=== PATIENT | female | born 1940 | race Caucasian/White ===

== ENCOUNTER 2022-12-16 08:44 | Day surgery (SDC) | payer OTHER, MEDICAID ==
[2022-12-15 09:32] VITALS: BMI 18.3
[2022-12-16] MEDS ORDERED: Lidocaine 1% (PF) 30 ML VIAL ONE (10:17)
[2022-12-16] MEDS ORDERED: Ketamine 50 MG/ML (10ML VIAL) ONE (10:40)
[2022-12-16] MEDS ORDERED: Iopamidol 370 76% 100 ML VIAL ONE (10:46)
[2022-12-16] MEDS ORDERED: PROPOFOL 200 MG/20 ML VIAL ONE (10:49)
[2022-12-16] MEDS ORDERED: Heparin 10,000 UNITS/ 10 ML VIAL ONE (11:46)
== END 2022-12-16 15:10 | disposition home or self-care (01) ==
LOC: SDC 08:44
PROVIDERS: ATTEND Internal Medicine Cardiovascular Disease
DX: I48.3 Typical atrial flutter (principal); I48.0 Paroxysmal atrial fibrillation; I47.1 Supraventricular tachycardia; I25.10 Atherosclerotic heart disease of native coronary artery without angina pectoris; I11.0 Hypertensive heart disease with heart failure; I50.32 Chronic diastolic (congestive) heart failure; E78.2 Mixed hyperlipidemia; Z95.0 Presence of cardiac pacemaker; Z92.89 Personal history of other medical treatment; Z79.01 Long term (current) use of anticoagulants; Z79.899 Other long term (current) drug therapy; Z87.891 Personal history of nicotine dependence
CPT/HCPCS: 93005; 93621; 93653; C1731; C1732; C1760; C1894; J1644; J2001; J2704; Q9967

== ENCOUNTER 2023-07-07 08:39 | Inpatient (IN) | payer MEDICAID, OTHER ==
[2023-07-07 09:04] LABS: #Basophils 0.1 thou/uL (0.0-0.2); #Eosinphils 0.1 thou/uL (0.0-0.7); #Monocytes 0.8 thou/uL (0.11-0.59); #Neutrophils 9.4 thou/uL (1.40-6.50); %Basophils 0.4 % (0.0-1.0); %Eosinophils 1.2 % (0.0-10.0); %Lymphocytes 12.1 % (21.0-51.0); %Monocytes 6.3 % (0.0-10.0); %Neutrophils 78.9 % (42.0-75.0); Hematocrit 40.6 % (36.0-47.0); Hemoglobin 12.2 g/dL (12.0-16.0); Mean Corpuscular Hemoglobin 24.8 pg (27.0-31.0); Mean Corpuscular Volume 82.7 fl (78.0-98.0); Mean Platelet Volume 10.7 fL (7.4-10.4); Platelet Count 432 10x3/uL (130-400); RBC Distribution Width 17.6 % (11.5-14.5); Red Blood Cell (RBC) Count 4.91 mill/uL (4.20-5.40); White Blood Cell (WBC) Count 11.9 10x3/uL (4.8-10.8)
[2023-07-07 09:18] LABS: ALT (SGPT) 17 U/L (8-55); AST (SGOT) 24 U/L (5-34); Albumin 3.7 g/dL (3.4-4.8); Alkaline Phosphatase 96 U/L (40-110); Anion Gap 14 mmol/L (10-20); BUN (Urea Nitrogen) 16 mg/dL (9.8-20.1); Bilirubin, Total 0.5 mg/dL (0.2-1.2); Calc. Creatinine Clearance 0 mL/min (70-130); Calcium 8.8 mg/dL (7.8-10.44); Carbon Dioxide 27 mmol/L (23-31); Chloride 105 mmol/L (98-107); Estimated GFR 54; Globulin 2.8 g/dL (2.4-3.5); Glucose 109 mg/dL (83-110); Protein, Total 6.5 g/dL (5.8-8.1); Sodium 143 mmol/L (136-145)
[2023-07-07 09:20] LABS: INR-International Normal Ratio 1.1; Prothrombin Time 13.8 sec (12.0-14.7)
[2023-07-07 09:21] LABS: PTT 27.3 sec (22.9-36.1)
[2023-07-07 09:23] LABS: Troponin I 0.079 ng/mL (< 0.028)
[2023-07-07] MEDS ORDERED: Aspirin Chewable 81 MG TAB ONE (10:39)
[2023-07-07] MEDS ORDERED: hydrALAZINE 20 MG/ML VIAL SLOW IVP PRN (11:27)
[2023-07-07 13:21] VITALS: BMI 19.8
[2023-07-07] MEDS ORDERED: Potassium Chloride 20 MEQ (100 mL) BAG ONE ×2 (13:36→15:37)
[2023-07-07] MEDS: Potassium Chloride 20 MEQ in Premix 1 BAG IVPB SCH (13:56)
[2023-07-07] MEDS: Sodium Chloride 0.9% 1,000 ML IV SCH (13:56)
[2023-07-07] MEDS ORDERED: Iopamidol-370 76% 500 ML MDV (1 ML CHARGE) ONE (14:22)
[2023-07-07] MEDS ORDERED: Pravastatin Sodium 40 MG TAB PO SCH (21:00)
[2023-07-07] MEDS: Apixaban 2.5 MG TAB PO SCH (22:34)
[2023-07-08] MEDS: Lidocaine 4% Patch TD SCH ×2 (02:08→20:45)
[2023-07-08 05:30] LABS: Cardiac Risk 2.7 (Less than 4.5)
[2023-07-08] MEDS: Ondansetron PF 4 MG/2 ML Vial IVP PRN (09:19)
[2023-07-08] MEDS: Morphine 2 MG/ML VIAL SLOW IVP PRN (09:19)
[2023-07-08 09:29] LABS: #Basophils 0.1 thou/uL (0.0-0.2); #Eosinphils 0.1 thou/uL (0.0-0.7); #Monocytes 0.8 thou/uL (0.11-0.59); #Neutrophils 13.4 thou/uL (1.40-6.50); %Basophils 0.3 % (0.0-1.0); %Eosinophils 0.3 % (0.0-10.0); %Lymphocytes 7.2 % (21.0-51.0); %Neutrophils 86.5 % (42.0-75.0); Hematocrit 39.5 % (36.0-47.0); Hemoglobin 11.7 g/dL (12.0-16.0); Mean Corpuscular HGB CONC 29.6 g/dL (32.0-36.0); Mean Corpuscular Hemoglobin 24.7 pg (27.0-31.0); Mean Corpuscular Volume 83.5 fl (78.0-98.0); Mean Platelet Volume 10.2 fL (7.4-10.4); Platelet Count 413 10x3/uL (130-400); RBC Distribution Width 17.6 % (11.5-14.5); Red Blood Cell (RBC) Count 4.73 mill/uL (4.20-5.40); White Blood Cell (WBC) Count 15.5 10x3/uL (4.8-10.8)
[2023-07-08 09:56] LABS: Anion Gap 15 mmol/L (10-20); BUN (Urea Nitrogen) 14 mg/dL (9.8-20.1); Calc. Creatinine Clearance 44 mL/min (70-130); Calcium 8.3 mg/dL (7.8-10.44); Carbon Dioxide 23 mmol/L (23-31); Chloride 109 mmol/L (98-107); Estimated GFR 74; Glucose 62 mg/dL (83-110); Magnesium 1.7 mg/dL (1.6-2.6); Potassium 3.2 mmol/L (3.5-5.1); Sodium 144 mmol/L (136-145)
[2023-07-08] MEDS: Aspirin 300 MG Suppository PR SCH (11:00)
[2023-07-08] MEDS: Potassium Chloride 20 MEQ in Premix 1 BAG IVPB SCH (13:09)
[2023-07-08] MEDS: Transdermal Patch Removal TOP SCH (14:14)
[2023-07-08] MEDS: Amiodarone 200 MG TAB PO SCH (16:41)
[2023-07-08] MEDS: Digoxin 0.125 MG TAB PO SCH (16:41)
[2023-07-08] MEDS: dilTIAZem CD 240 MG CAP PO SCH (16:41)
[2023-07-08 16:43] LABS: Bacteria/HPF 2+ HPF (None Seen); Bilirubin Negative (Negative); Blood, Urine 1+ (Negative); CAUTI Indications for Culture Alt mental st,lethar; Clarity Extra Turbid (Clear); Glucose, Urine (Dipstick) Normal (Negative); Ketone, Urine 80 mg/dL (Negative); Leukocyte 500 Leu/uL (Negative); Nitrite 2+ (Negative); Protein, Urine (Dipstick) 100 mg/dL (Neg-Trace); RBC/HPF 21-50 HPF (0-3); Specific Gravity, Urine 1.025 (1.002-1.036); Squamous Epithelial 0-3 HPF (0-3); Urobilinogen Normal mg/dL (Less than 2); WBC/HPF Greater than 50 HPF (0-3); pH, Urine 7.5 (5.0-9.0)
[2023-07-08 16:49] LABS: Urine Culture Reflex Yes Yes
[2023-07-09 06:10] LABS: #Eosinphils 0.1 thou/uL (0.0-0.7); #Monocytes 0.8 thou/uL (0.11-0.59); #Neutrophils 10.2 thou/uL (1.40-6.50); %Basophils 0.3 % (0.0-1.0); %Lymphocytes 10.1 % (21.0-51.0); %Monocytes 6.3 % (0.0-10.0); %Neutrophils 81.8 % (42.0-75.0); Hematocrit 35.9 % (36.0-47.0); Hemoglobin 10.8 g/dL (12.0-16.0); Mean Corpuscular HGB CONC 30.1 g/dL (32.0-36.0); Mean Corpuscular Volume 83.1 fl (78.0-98.0); Mean Platelet Volume 10.6 fL (7.4-10.4); Platelet Count 340 10x3/uL (130-400); RBC Distribution Width 17.6 % (11.5-14.5); Red Blood Cell (RBC) Count 4.32 mill/uL (4.20-5.40); White Blood Cell (WBC) Count 12.5 10x3/uL (4.8-10.8)
[2023-07-09 06:39] LABS: Anion Gap 12 mmol/L (10-20); BUN (Urea Nitrogen) 11 mg/dL (9.8-20.1); Calc. Creatinine Clearance 46 mL/min (70-130); Carbon Dioxide 23 mmol/L (23-31); Chloride 111 mmol/L (98-107); Estimated GFR 78; Glucose 73 mg/dL (83-110); Potassium 3.4 mmol/L (3.5-5.1); Sodium 143 mmol/L (136-145)
[2023-07-09] MEDS: predniSONE 20 MG TAB PO SCH (08:31)
[2023-07-09] MEDS: Transdermal Patch Removal TOP SCH (10:45)
[2023-07-09] MEDS: Potassium Bicarbonate/Cit Ac 20 MEQ TAB PO SCH (11:05)
[2023-07-09] MEDS: Potassium Chloride 20 MEQ TAB PO SCH (11:06)
[2023-07-09] MEDS: cefTRIAXone\\ROCEPHIN 1 GM in Sodium Chloride 0.9% 100 ML IVPB SCH (21:53)
[2023-07-10 04:23] LABS: #Eosinphils 0.1 thou/uL (0.0-0.7); #Monocytes 0.8 thou/uL (0.11-0.59); #Neutrophils 9.3 thou/uL (1.40-6.50); %Basophils 0.3 % (0.0-1.0); %Eosinophils 0.4 % (0.0-10.0); %Lymphocytes 9.2 % (21.0-51.0); %Monocytes 6.8 % (0.0-10.0); %Neutrophils 82.9 % (42.0-75.0); Hematocrit 35.1 % (36.0-47.0); Hemoglobin 10.4 g/dL (12.0-16.0); Mean Corpuscular HGB CONC 29.6 g/dL (32.0-36.0); Mean Corpuscular Hemoglobin 24.5 pg (27.0-31.0); Mean Corpuscular Volume 82.8 fl (78.0-98.0); Mean Platelet Volume 10.1 fL (7.4-10.4); Platelet Count 339 10x3/uL (130-400); RBC Distribution Width 17.5 % (11.5-14.5); Red Blood Cell (RBC) Count 4.24 mill/uL (4.20-5.40); White Blood Cell (WBC) Count 11.2 10x3/uL (4.8-10.8)
[2023-07-10 04:47] LABS: Anion Gap 9 mmol/L (10-20); BUN (Urea Nitrogen) 9 mg/dL (9.8-20.1); CRP (Inflammatory) 5.38 mg/dL (= or < 0.5); Calc. Creatinine Clearance 49 mL/min (70-130); Calcium 8.2 mg/dL (7.8-10.44); Carbon Dioxide 23 mmol/L (23-31); Chloride 110 mmol/L (98-107); Estimated GFR 84; Glucose 103 mg/dL (83-110); Potassium 3.5 mmol/L (3.5-5.1); Sodium 138 mmol/L (136-145)
[2023-07-10] MEDS: Bisacodyl 5 MG TAB PO PRN (23:15)
[2023-07-11] MEDS: Aspirin 81 mg Enteric Coated Tablet PO SCH (11:50)
[2023-07-12] MEDS: AMPicillin 1 GM in Sodium Chloride 0.9% 100 ML IVPB SCH (11:46)
[2023-07-12] MEDS: Lorazepam 0.5 MG TAB PO PRN (12:51)
[2023-07-13 06:32] LABS: #Eosinphils 0.2 thou/uL (0.0-0.7); #Monocytes 0.6 thou/uL (0.11-0.59); #Neutrophils 9.1 thou/uL (1.40-6.50); %Basophils 0.4 % (0.0-1.0); %Eosinophils 1.8 % (0.0-10.0); %Monocytes 4.9 % (0.0-10.0); %Neutrophils 80.2 % (42.0-75.0); Hematocrit 36.7 % (36.0-47.0); Hemoglobin 11.1 g/dL (12.0-16.0); Mean Corpuscular HGB CONC 30.2 g/dL (32.0-36.0); Mean Corpuscular Hemoglobin 24.8 pg (27.0-31.0); Mean Corpuscular Volume 82.1 fl (78.0-98.0); Mean Platelet Volume 10.3 fL (7.4-10.4); Platelet Count 368 10x3/uL (130-400); RBC Distribution Width 17.6 % (11.5-14.5); Red Blood Cell (RBC) Count 4.47 mill/uL (4.20-5.40); White Blood Cell (WBC) Count 11.4 10x3/uL (4.8-10.8)
[2023-07-13 07:01] LABS: Anion Gap 10 mmol/L (10-20); BUN (Urea Nitrogen) 12 mg/dL (9.8-20.1); Calc. Creatinine Clearance 44 mL/min (70-130); Calcium 7.9 mg/dL (7.8-10.44); Carbon Dioxide 26 mmol/L (23-31); Chloride 110 mmol/L (98-107); Estimated GFR 75; Glucose 80 mg/dL (83-110); Potassium 2.9 mmol/L (3.5-5.1); Sodium 143 mmol/L (136-145)
[2023-07-13] MEDS: Potassium Chloride 20 MEQ TAB PO SCH ×2 (08:47→18:04)
[2023-07-13] MEDS: predniSONE 20 MG TAB PO SCH (12:06)
[2023-07-13 16:38] LABS: Magnesium 1.6 mg/dL (1.6-2.6); Potassium 3.3 mmol/L (3.5-5.1)
[2023-07-13] MEDS ORDERED: Magnesium 2 GM/50 ML(in water) 1 GM in Premix 1 BAG IVPB SCH (17:15)
[2023-07-13] MEDS: Magnesium 2 GM/50 ML(in water) 1 GM in Premix 1 BAG IVPB SCH (18:04)
[2023-07-13 23:13] LABS: Magnesium 2.4 mg/dL (1.6-2.6); Potassium 4.3 mmol/L (3.5-5.1)
[2023-07-14 07:01] LABS: #Eosinphils 0.1 thou/uL (0.0-0.7); #Monocytes 0.6 thou/uL (0.11-0.59); #Neutrophils 9.2 thou/uL (1.40-6.50); %Basophils 0.2 % (0.0-1.0); %Eosinophils 0.5 % (0.0-10.0); %Lymphocytes 11.3 % (21.0-51.0); %Monocytes 5.6 % (0.0-10.0); %Neutrophils 81.7 % (42.0-75.0); Mean Corpuscular HGB CONC 29.7 g/dL (32.0-36.0); Mean Corpuscular Hemoglobin 24.7 pg (27.0-31.0); Mean Corpuscular Volume 83.1 fl (78.0-98.0); Mean Platelet Volume 10.5 fL (7.4-10.4); Platelet Count 387 10x3/uL (130-400); RBC Distribution Width 17.5 % (11.5-14.5); Red Blood Cell (RBC) Count 4.45 mill/uL (4.20-5.40); White Blood Cell (WBC) Count 11.3 10x3/uL (4.8-10.8)
[2023-07-14 07:28] LABS: Anion Gap 10 mmol/L (10-20); BUN (Urea Nitrogen) 11 mg/dL (9.8-20.1); Calc. Creatinine Clearance 44 mL/min (70-130); Carbon Dioxide 24 mmol/L (23-31); Chloride 111 mmol/L (98-107); Estimated GFR 75; Glucose 89 mg/dL (83-110); Magnesium 2.2 mg/dL (1.6-2.6); Potassium 3.9 mmol/L (3.5-5.1); Sodium 141 mmol/L (136-145)
[2023-07-14] MEDS: predniSONE 20 MG TAB PO SCH (08:31)
[2023-07-14 15:25] VITALS: BP 107/48; TEMP 98.2
[2023-07-16 03:12] LABS: Adenovirus F 40-41 Not Detected (Not Detected); Astrovirus Not Detected (Not Detected); C. difficile toxin A+B Not Detected (Not Detected); Campylobacter by PCR Not Detected (Not Detected); Cryptosporidium Not Detected (Not Detected); Cyclospora cayetanensis Not Detected (Not Detected); Entamoeba histolytica Not Detected (Not Detected); Enteroaggregative E. coli Not Detected (Not Detected); Enteropathogenic E. coli Not Detected (Not Detected); Enterotoxigenic E. coli Not Detected (Not Detected); Giardia lamblia Not Detected (Not Detected); Norovirus GI-GII Not Detected (Not Detected); Plesiomonas shigelloides Not Detected (Not Detected); Rotavirus A Not Detected (Not Detected); Salmonella Not Detected (Not Detected); Sapovirus Not Detected (Not Detected); Shiga-toxin-producing E coli Not Detected (Not Detected); Shigella/Enteroinvasive E coli Not Detected (Not Detected); Vibrio Not Detected (Not Detected); Vibrio cholerae Not Detected (Not Detected); Yersinia enterocolitica Not Detected (Not Detected)
== END 2023-07-14 16:00 | DRG 65 ==
LOC: ERS 08:39 → ERHOLD 10:46 → 2SE 21:48
PROVIDERS: ADMIT Internal Medicine; ATTEND Internal Medicine
DX: I63.511 Cerebral infarction due to unspecified occlusion or stenosis of right middle cerebral artery (principal); G81.91 Hemiplegia, unspecified affecting right dominant side; N39.0 Urinary tract infection, site not specified; I48.20 Chronic atrial fibrillation, unspecified; E78.00 Pure hypercholesterolemia, unspecified; M06.9 Rheumatoid arthritis, unspecified; I50.9 Heart failure, unspecified; I25.5 Ischemic cardiomyopathy; I27.20 Pulmonary hypertension, unspecified; I73.9 Peripheral vascular disease, unspecified; Z66 Do not resuscitate; R13.10 Dysphagia, unspecified; E87.6 Hypokalemia; I11.0 Hypertensive heart disease with heart failure; I08.2 Rheumatic disorders of both aortic and tricuspid valves; Z95.5 Presence of coronary angioplasty implant and graft; Z95.0 Presence of cardiac pacemaker; Z98.890 Other specified postprocedural states; Z90.710 Acquired absence of both cervix and uterus; Z88.8 Allergy status to other drugs, medicaments and biological substances; Z79.01 Long term (current) use of anticoagulants; Z79.899 Other long term (current) drug therapy; Z90.49 Acquired absence of other specified parts of digestive tract
CPT/HCPCS: 0042T; 36415; 70450; 70496; 70498; 70551; 74230; 80048; 80053; 80061; 81001; 83630; 83735; 84484; 85025; 85610; 85730; 86140; 87077; 87086; 87186; 87324; 87449; 87507; 93005; 93306; J0290; J0696; J2272; J2405; J3475; J3480; J3490; J7050; J7512; Q9967

== ENCOUNTER 2023-10-31 02:35 | Inpatient (IN) | payer MEDICARE, OTHER ==
[2023-10-31] MEDS ORDERED: Nitroglycerin 2% Ointment 1 INCH/1 GM Packet ONE (03:29)
[2023-10-31] MEDS ORDERED: Furosemide 40 MG (4 mL) VIAL ONE (03:29)
[2023-10-31 04:36] LABS: Actual Bicarbonate (HCO3v) 23.8 mEq/L (22-28); Base Excess -1.3 mEq/L (-2.0 to +3.0); Calcium, Ionized (venous) 1.12 mmol/L (1.16-1.32); Chloride (VBG) 106 mmol/L (98-106); Hematocrit-VBG 32 % (36.0-47.0); Hemoglobin (Hb) 10.8 g/dL (11.7-16.1); Potassium (VBG) 4.14 mmol/L (3.70-5.30); Sodium 142 mmol/L (133-146); pH (venous) 7.374 (7.32-7.43)
[2023-10-31 04:59] LABS: #Basophils 0.09 10x3/uL (0.0-0.2); %Basophils 0.6 % (0.0-1.0); %Eosinophils 2.1 % (0.0-10.0); %Lymphocytes 10.4 % (21.0-51.0); %Neutrophils 82.3 % (42.0-75.0); Hematocrit 37.2 % (36.0-47.0); Hemoglobin 10.5 g/dL (12.0-16.0); Mean Corpuscular HGB CONC 28.2 g/dL (32.0-36.0); Mean Corpuscular Hemoglobin 21.3 pg (27.0-31.0); Mean Corpuscular Volume 75.6 fL (78.0-98.0); Mean Platelet Volume 10.3 fL (7.4-10.4); Platelet Count 590 10x3/uL (130-400); RBC Distribution Width 19.6 % (11.5-14.5); Red Blood Cell (RBC) Count 4.92 mill/uL (4.20-5.40)
[2023-10-31 05:04] LABS: Digoxin 1.39 ng/mL (0.8-2.0)
[2023-10-31 05:08] LABS: ALT (SGPT) 19 U/L (8-55); AST (SGOT) 36 U/L (5-34); Albumin 3.1 g/dL (3.4-4.8); Alkaline Phosphatase 99 U/L (40-110); Anion Gap 19 mmol/L (10-20); BUN (Urea Nitrogen) 16 mg/dL (9.8-20.1); Bilirubin, Total 0.5 mg/dL (0.2-1.2); Calc. Creatinine Clearance 0 mL/min (70-130); Carbon Dioxide 21 mmol/L (23-31); Chloride 108 mmol/L (98-107); Estimated GFR 59; Globulin 2.7 g/dL (2.4-3.5); Glucose 96 mg/dL (83-110); INR-International Normal Ratio 1.1; PTT 29.7 sec (22.9-36.1); Potassium 4.5 mmol/L (3.5-5.1); Protein, Total 5.8 g/dL (5.8-8.1); Prothrombin Time 14.1 sec (12.0-14.7); Sodium 143 mmol/L (136-145)
[2023-10-31 05:10] LABS: Troponin I 0.067 ng/mL (< 0.028)
[2023-10-31 05:31] LABS: Burr Cells SLIGHT = 2-5 cells HPF (0-1); Microcytosis SLIGHT = 6-15 cells HPF (0-5); Ovalocytes SLIGHT = 2-5 cells HPF (0-1); Platelet Adequacy Comment Platelets Increased; Poikilocytosis MODERATE=16-30 cells HPF (0-5); Polychromasia SLIGHT = 2-3 cells HPF (0-2)
[2023-10-31] MEDS ORDERED: Sodium Chloride 0.9% 100 ML ONE (06:06)
[2023-10-31] MEDS ORDERED: cefTRIAXone (ROCEPHIN) 2 GM VIAL ONE (06:06)
[2023-10-31] MEDS ORDERED: Ondansetron PF 4 MG/2 ML Vial IVP PRN (07:55)
[2023-10-31] MEDS ORDERED: Ondansetron ODT 4 MG TAB PO PRN (07:55)
[2023-10-31] MEDS ORDERED: Acetaminophen 650 MG Suppository PR PRN (07:55)
[2023-10-31 08:15] LABS: Troponin I 0.064 ng/mL (< 0.028)
[2023-10-31] MEDS ORDERED: Enoxaparin 40 MG (0.4 mL) SYRINGE SC SCH (09:00)
[2023-10-31 09:06] LABS: Lactic Acid 2.1 mmol/L (0.5-2.2)
[2023-10-31 09:11] LABS: Bacteria/HPF None Seen HPF (None Seen); Bilirubin Negative (Negative); Blood, Urine Negative (Negative); Clarity Clear (Clear); Glucose, Urine (Dipstick) Normal (Negative); Ketone, Urine Negative (Negative); Leukocyte Negative Leu/uL (Negative); Nitrite Negative (Negative); Protein, Urine (Dipstick) Negative (Neg-Trace); RBC/HPF 0-3 HPF (0-3); Specific Gravity, Urine 1.008 (1.002-1.036); Squamous Epithelial 0-3 HPF (0-3); Urobilinogen Normal mg/dL (Less than 2); WBC/HPF 0-3 HPF (0-3)
[2023-10-31] MEDS ORDERED: Digoxin 0.125 MG TAB ONE (09:48)
[2023-10-31] MEDS ORDERED: Aspirin Chewable 81 MG TAB ONE (09:48)
[2023-10-31 09:50] VITALS: BMI 19.5
[2023-10-31] MEDS: Carvedilol 3.125 MG TAB PO SCH (09:50)
[2023-10-31] MEDS: Apixaban 2.5 MG TAB PO SCH (09:50)
[2023-10-31] MEDS: Empagliflozin 10 MG TAB PO SCH (09:50)
[2023-10-31] MEDS: TICAGRELOR 90 MG TABLET PO SCH (09:50)
[2023-10-31] MEDS: Aspirin 81 mg Enteric Coated Tablet PO SCH (09:50)
[2023-10-31] MEDS: Potassium Chloride 10 MEQ TAB PO SCH (09:50)
[2023-10-31] MEDS: Digoxin 0.125 MG TAB PO SCH (09:57)
[2023-10-31] MEDS: Lisinopril 2.5 MG TAB PO SCH (09:58)
[2023-10-31] MEDS: Furosemide 40 MG (4 mL) VIAL SLOW IVP SCH (15:23)
[2023-10-31 20:28] LABS: Troponin I 0.076 ng/mL (< 0.028)
[2023-10-31] MEDS: Atorvastatin Calcium 40 MG TAB PO SCH (21:13)
[2023-11-01] MEDS: Sodium Chloride 0.9% 250 ML IV SCH (05:31)
[2023-11-01 05:50] LABS: #Basophils 0.07 10x3/uL (0.0-0.2); %Basophils 0.6 % (0.0-1.0); %Eosinophils 3.7 % (0.0-10.0); %Lymphocytes 15.2 % (21.0-51.0); %Monocytes 7.2 % (0.0-10.0); %Neutrophils 72.8 % (42.0-75.0); Hemoglobin 9.6 g/dL (12.0-16.0); Mean Corpuscular HGB CONC 29.1 g/dL (32.0-36.0); Mean Corpuscular Hemoglobin 21.9 pg (27.0-31.0); Mean Corpuscular Volume 75.3 fL (78.0-98.0); Mean Platelet Volume 10.1 fL (7.4-10.4); Platelet Count 456 10x3/uL (130-400); RBC Distribution Width 19.3 % (11.5-14.5); Red Blood Cell (RBC) Count 4.38 mill/uL (4.20-5.40)
[2023-11-01 06:19] LABS: Anion Gap 11 mmol/L (10-20); BUN (Urea Nitrogen) 18 mg/dL (9.8-20.1); Calc. Creatinine Clearance 28 mL/min (70-130); Calcium 8.2 mg/dL (7.8-10.44); Carbon Dioxide 26 mmol/L (23-31); Chloride 106 mmol/L (98-107); Estimated GFR 57; Glucose 79 mg/dL (83-110); Potassium 3.4 mmol/L (3.5-5.1)
[2023-11-01 06:42] LABS: Sodium 140 mmol/L (136-145)
[2023-11-01] MEDS: Potassium Bicarbonate/Cit Ac 20 MEQ TAB PO SCH (09:45)
[2023-11-01] MEDS ORDERED: Polyethylene Glycol 3350 17 GM Packet PO PRN (12:50)
[2023-11-02 04:39] LABS: #Basophils 0.07 10x3/uL (0.0-0.2); %Basophils 0.7 % (0.0-1.0); %Eosinophils 3.4 % (0.0-10.0); %Lymphocytes 15.1 % (21.0-51.0); %Monocytes 8.2 % (0.0-10.0); %Neutrophils 72.2 % (42.0-75.0); Hematocrit 34.8 % (36.0-47.0); Hemoglobin 10.4 g/dL (12.0-16.0); Mean Corpuscular HGB CONC 29.9 g/dL (32.0-36.0); Mean Corpuscular Hemoglobin 21.6 pg (27.0-31.0); Mean Corpuscular Volume 72.2 fL (78.0-98.0); Platelet Count 477 10x3/uL (130-400); RBC Distribution Width 19.5 % (11.5-14.5); Red Blood Cell (RBC) Count 4.82 mill/uL (4.20-5.40)
[2023-11-02 05:02] LABS: Anion Gap 12 mmol/L (10-20); BUN (Urea Nitrogen) 22 mg/dL (9.8-20.1); Calc. Creatinine Clearance 28 mL/min (70-130); Calcium 8.8 mg/dL (7.8-10.44); Carbon Dioxide 28 mmol/L (23-31); Chloride 102 mmol/L (98-107); Estimated GFR 57; Glucose 86 mg/dL (83-110); Potassium 3.7 mmol/L (3.5-5.1); Sodium 138 mmol/L (136-145)
[2023-11-02] MEDS: Acetaminophen 325 MG TAB PO PRN (10:04)
[2023-11-03 05:28] LABS: Anion Gap 17 mmol/L (10-20); BUN (Urea Nitrogen) 26 mg/dL (9.8-20.1); Calc. Creatinine Clearance 22 mL/min (70-130); Calcium 8.4 mg/dL (7.8-10.44); Carbon Dioxide 24 mmol/L (23-31); Chloride 106 mmol/L (98-107); Estimated GFR 45; Glucose 80 mg/dL (83-110); Potassium 3.8 mmol/L (3.5-5.1); Sodium 143 mmol/L (136-145)
[2023-11-03 05:42] LABS: Band 3 % (5-11); Eosinophils 1 % (0-10); Lymphocytes 26 % (21-51); Microcytosis SLIGHT = 6-15 cells HPF (0-5); Monocytes 2 % (0-10); Neutrophil 66 % (42-75); Ovalocytes SLIGHT = 2-5 cells HPF (0-1); Platelet Adequacy Comment Platelets Increased; Polychromasia SLIGHT = 2-3 cells HPF (0-2); Reactive Lymphocytes 1 % (0-10)
[2023-11-03 05:54] LABS: Mean Corpuscular HGB CONC 29.4 g/dL (32.0-36.0); Mean Corpuscular Hemoglobin 21.4 pg (27.0-31.0); Mean Corpuscular Volume 72.6 fL (78.0-98.0); Mean Platelet Volume 10.1 fL (7.4-10.4); Platelet Count 480 10x3/uL (130-400); RBC Distribution Width 19.3 % (11.5-14.5); Red Blood Cell (RBC) Count 4.68 mill/uL (4.20-5.40)
[2023-11-03 08:33] VITALS: TEMP 97.6
[2023-11-03] MEDS: Furosemide 20 MG TAB PO SCH (09:19)
[2023-11-03 11:09] VITALS: BP 99/54
== END 2023-11-03 11:45 | disposition home or self-care (01) | DRG 291 ==
LOC: ERS 02:35 → SUATTDRO 02:35 → ERHOLD 07:30 → 2NO 13:38
PROVIDERS: ADMIT Family Medicine; ATTEND Internal Medicine
DX: I11.0 Hypertensive heart disease with heart failure (principal); I50.43 Acute on chronic combined systolic (congestive) and diastolic (congestive) heart failure; J96.01 Acute respiratory failure with hypoxia; I48.92 Unspecified atrial flutter; E78.5 Hyperlipidemia, unspecified; D72.829 Elevated white blood cell count, unspecified; I48.0 Paroxysmal atrial fibrillation; I25.10 Atherosclerotic heart disease of native coronary artery without angina pectoris; Z66 Do not resuscitate; Z51.5 Encounter for palliative care; I25.2 Old myocardial infarction; Z95.5 Presence of coronary angioplasty implant and graft; Z95.0 Presence of cardiac pacemaker; Z90.49 Acquired absence of other specified parts of digestive tract; Z90.711 Acquired absence of uterus with remaining cervical stump; Z79.01 Long term (current) use of anticoagulants; Z79.02 Long term (current) use of antithrombotics/antiplatelets; Z90.710 Acquired absence of both cervix and uterus; Z86.73 Personal history of transient ischemic attack (TIA), and cerebral infarction without residual deficits; Z79.82 Long term (current) use of aspirin
CPT/HCPCS: 36415; 71045; 80048; 80053; 80162; 81001; 82805; 83605; 83735; 83880; 84484; 85025; 85610; 85730; 87040; 93005; 94660; 96365; 96375; J0696; J1940; J3490

== ENCOUNTER 2023-12-20 18:18 | Emergency (ER) | payer MEDICARE, OTHER ==
[2023-12-20] MEDS ORDERED: Ketorolac Tromethamine 30 MG (1 mL) VIAL ONE (20:07)
== END 2023-12-20 20:20 | disposition home or self-care (01) ==
LOC: ERS 18:18
DX: S00.03XA Contusion of scalp, initial encounter (principal); R09.89 Other specified symptoms and signs involving the circulatory and respiratory systems; I48.91 Unspecified atrial fibrillation; E78.5 Hyperlipidemia, unspecified; I11.0 Hypertensive heart disease with heart failure; I50.9 Heart failure, unspecified; W19.XXXA Unspecified fall, initial encounter
CPT/HCPCS: 70450; 71045; 93005; J1885; 96374